=== PATIENT | female | born 1995 | race Caucasian/White ===

== ENCOUNTER 2017-03-03 16:54 | Emergency (ER) | payer SELFPAY ==
[2017-03-03 16:58] VITALS: BP 118/80; PULSE 98; RESP 14; TEMP 98.7; O2SAT 99
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
[2017-03-03] MEDS ORDERED: levETIRAcetam 1000 MG INJ 100 ML IV ONE (18:45)
[2017-03-03] MEDS ORDERED: SODIUM CHLORIDE 0.9% FLUSH 10 ML FLUSH IVF PRN (18:45)
[2017-03-03] MEDS ORDERED: SODIUM CHLOR 0.9% 1000 ML INJ 1,000 ML IV ONE (18:45)
[2017-03-03 18:59] VITALS: O2SAT 98
[2017-03-03 19:01] VITALS: BP 145/73; PULSE 79; RESP 18; O2SAT 97
[2017-03-03 19:24] LABS: AUTOMATED NEUTROPHIL # 8.8 TH/MM3 (1.8-7.7); BASOPHIL # 0.1 TH/MM3 (0-0.2); BASOPHIL % 0.6 % (0.0-2.0); EOSINOPHIL # 0.1 TH/MM3 (0-0.4); EOSINOPHIL % 0.4 % (0.0-4.0); HEMATOCRIT 42.8 % (35.0-46.0); HEMO FLAGS DIFF FINAL; LYMPH % 27.2 % (9.0-44.0); LYMPHOCYTE # 3.7 TH/MM3 (1.0-4.8); MEAN CELL VOLUME 86.7 FL (80.0-100.0); MEAN CORPUSCULAR HEMOGLOBIN 29.2 PG (27.0-34.0); MEAN CORPUSCULAR HGB CONC 33.7 % (32.0-36.0); MONO % 7.7 % (0.0-8.0); NEUT % 64.1 % (16.0-70.0); PLATELET COUNT 255 TH/MM3 (150-450); RED BLOOD COUNT 4.93 MIL/MM3 (4.00-5.30); RED CELL DISTRIBUTION WIDTH 13.8 % (11.6-17.2); WHITE BLOOD COUNT 13.7 TH/MM3 (4.0-11.0)
[2017-03-03 19:36] LABS: PROTHROMBIN TIME - PATIENT 10.8 SEC (9.8-11.6)
[2017-03-03 19:38] LABS: ANION GAP 9 MEQ/L (5-15); BICARBONATE 25.6 MEQ/L (21.0-32.0); BLOOD UREA NITROGEN 6 MG/DL (7-18); CHLORIDE 107 MEQ/L (98-107); GLOMERULAR FILTRATION RATE 91 ML/MIN (>89); POTASSIUM 3.4 MEQ/L (3.5-5.1); SODIUM (NA) 142 MEQ/L (136-145)
--- NOTE | 2017-03-03 19:39 | RADRPT ---
EXAM DATE/TIME: 03/03/2017 19:10 [facility] COMPARISON: No previous studies available for comparison. INDICATIONS : Left arm numbness and tingling. RADIATION DOSE: 30.84 CTDIvol (mGy) MEDICAL HISTORY : None SURGICAL HISTORY : None. ENCOUNTER: Initial ACUITY: 1 day PAIN SCALE: 0/10 LOCATION: cranial TECHNIQUE: Multiple contiguous axial images were obtained of the head. Using automated exposure control and adj ustment of the mA and/or kV according to patient size, radiation dose was kept as low as reasonably a chievable to obtain optimal diagnostic quality images. FINDINGS: CEREBRUM: The ventricles are normal. No evidence of midline shift, mass lesion, hemorrhage or acute infarction . No extra-axial fluid collections are seen. POSTERIOR FOSSA: The cerebellum and brainstem demonstrate no abnormality. The 4th ventricle is midline. The cerebell opontine angle is unremarkable. EXTRACRANIAL: The visualized sinuses are clear. SKULL: The calvaria is intact. No evidence of skull fracture. CONCLUSION: Negative noncontrast head CT. No acute finding is identified. Madan Holden MD on March 03, 2017 at 19:35 Board Certified Radiologist. This report was verified electronically.
[2017-03-03 19:41] LABS: CREATINE KINASE 182 U/L (26-192)
[2017-03-03] MEDS ORDERED: POTASSIUM CHLORIDE 20 MEQ CONTROLLED RELEASE TAB PO ONE (19:45)
--- NOTE | 2017-03-03 19:52 | RADRPT ---
EXAM DATE/TIME: 03/03/2017 19:26 [facility] COMPARISON: CT ABDOMEN & PELVIS W/O CONTRAST, August 22, 2013, 15:15. INDICATIONS : Left arm numbness. MEDICAL HISTORY : None. SURGICAL HISTORY : None. ENCOUNTER: Initial ACUITY: 1 day PAIN SCORE: 0/10 LOCATION: Left chest FINDINGS: Portable AP view of the chest demonstrates a normal-sized cardiac silhouette. No effusion, consolidat ion, or pneumothorax is visualized. The bones and soft tissues demonstrate no acute abnormality. CONCLUSION: No acute cardiopulmonary abnormality is identified. Madan Holden MD on March 03, 2017 at 19:49 Board Certified Radiologist. This report was verified electronically.
[2017-03-03] MEDS ORDERED: LEVE500 PO (20:22)
[2017-03-03 20:33] LABS: AMPHETAMINE, URINE NEG (NEG); BARBITURATES, URINE NEG (NEG); COCAINE, URINE NEG (NEG)
[2017-03-03 20:35] LABS: BACTERIA, URINE OCC /hpf; BLOOD, URINE NEG (NEG); COMMENT (UR) CATH-CULTURE IND; CULTURE IF INDICATED CATH CULTURE IND; GLUCOSE,URINE NEG (NEG); KETONE, URINE TRACE mg/dL (NEG); NITRITE,URINE NEG (NEG); PH, URINE 7.5 (5.0-8.5); SQUAMOUS EPITHELIAL CELL URINE 2 /hpf (0-5); URINE COLOR YELLOW (YELLW/STRAW)
[2017-03-03] MEDS ORDERED: MACR100C2 PO (20:41)
[2017-03-03] MEDS ORDERED: NITROFURANTOIN MONOHYD MACROCR 100 MG CAP PO ONE (20:45)
--- NOTE | 2017-03-04 13:48 | EKG ---
Date Performed: 03/03/2017 Time Performed: 18:54:54 PTAGE: 21 years EKG: Sinus rhythm MINIMAL ST DEPRESSION BORDERLINE ECG NO PREVIOUS TRACING DOCTOR: India Feliz Interpretating Date/Time 03/04/2017 13:43:30
== END 2017-03-03 20:52 | disposition home or self-care (01) ==
LOC: NEPD 16:54
DX: G40.909 Epilepsy, unspecified, not intractable, without status epilepticus (principal); G83.84 Todd's paralysis (postepileptic); N39.0 Urinary tract infection, site not specified; R53.1 Weakness; R56.9 Unspecified convulsions; F17.200 Nicotine dependence, unspecified, uncomplicated; Z79.899 Other long term (current) drug therapy
CPT/HCPCS: 70450; 71010; 80048; 80307; 81001; 82550; 84484; 85025; 85610; 87086; 93005; 96361; 96365; 99285; J1953; J7030

== ENCOUNTER 2017-04-29 15:07 | Emergency (ER) | payer BC ==
[~2017-04-29] VITALS: Ht 154.9 cm; Wt 45.5 kg
[~2017-04-29 15:07] MED LIST: LEVE500 PO; MACR100C2 PO
[2017-04-29 15:22] VITALS: BP 110/69; PULSE 84; RESP 16; TEMP 98.6; O2SAT 99
[2017-04-29] MEDS ORDERED: SODIUM CHLOR 0.9% 1000 ML INJ 1,000 ML IV SCH (16:22)
[2017-04-29] MEDS ORDERED: SODIUM CHLORIDE 0.9% FLUSH 10 ML FLUSH IV FLUSH PRN (16:30)
--- NOTE | 2017-04-29 16:32 | PD ---
HPI Chief Complaint: Abdominal Pain Time Seen by Provider: 16:10 Travel History International Travel<30 days: No Contact w/Intl Traveler<30days: No Traveled to known affect area: No History of Present Illness HPI 21-year-old female presents to the emergency room for evaluation of periumbilical abdominal pain for the past 4 days. States it started off intermittent and has become constant over the past 2 days. She has been taking Tums without relief in symptoms. She has had intermittent associated nausea but no vomiting or diarrhea. No history of abdominal surgery. Denies fever, chills, urinary frequency, urgency, or dysuria. She was previously prescribed Keppra but stopped taking it 2 weeks ago. Patient states she was never officially diagnosed with epilepsy and she did not like the way the medication made her feel so she stopped taking it. She is following with a neurologist. LMP was 1 week ago. PFSH Past Medical History Diminished Hearing: No Immunizations Current: Yes Seizures: Yes Tetanus Vaccination: > 5 Years Influenza Vaccination: No ?: Not LMP: 04/21/17 Menopausal: No : 0 Para: 0 Miscarriage: 0 : 0 Past Surgical History Surgical History: No Previous Surgery Social History Alcohol Use: Yes (Occ.) Tobacco Use: Yes (1/2-1 PPD) Substance Use: Yes (Marijuana occ. ) Allergies-Medications (Allergen,Severity, Reaction): Coded Allergies: No Known Allergies (Verified , 04/29/17) Reported Meds & Prescriptions Reported Meds & Active Scripts Active Omeprazole 20 Mg Tab 20 Mg PO DAILY Zofran (Ondansetron HCl) 4 Mg Tab 4 Mg PO Q8HR PRN Review of Systems Except as stated in HPI: all other systems reviewed are Neg Physical Exam Narrative GENERAL: Well-nourished, well-developed female in no acute distress. Afebrile. Ambulatory. SKIN: Focused skin assessment warm/dry. HEAD: Normocephalic. EYES: No scleral icterus. No injection or drainage. NECK: Supple, trachea midline. No JVD or lymphadenopathy. CARDIOVASCULAR: Regular rate and rhythm without murmurs, gallops, or rubs. RESPIRATORY: Breath sounds equal bilaterally. No accessory muscle use. GASTROINTESTINAL: Abdomen soft, nondistended. Tenderness to palpation and guarding at McBurney's point. Negative psoas sign. Positive obturator sign. No rebound tenderness. Data Data Last Documented VS Vital Signs Date Time Temp Pulse Resp B/P Pulse Ox O2 Delivery O2 Flow Rate FiO2 04/29/17 17:35 85 16 119/70 99 Room Air 04/29/17 15:22 98.6 Orders Complete Blood Count With Diff (04/29/17 16:22) Comprehensive Metabolic Panel (04/29/17 16:22) Lipase (04/29/17 16:22) Prothrombin Time / Inr (Pt) (04/29/17 16:22) Act Partial Throm Time (Ptt) (04/29/17 16:22) Urinalysis - C+S If Indicated (04/29/17 16:22) Ct Abd/Pel W Iv Contrast(Rout) (04/29/17 16:22) Iv Access Insert/Monitor (04/29/17 16:22) Sodium Chlor 0.9% 1000 Ml Inj (Ns 1000 M (04/29/17 16:22) Sodium Chloride 0.9% Flush (Ns Flush) (04/29/17 16:30) Ed Urine Pregnancytest Poc (04/29/17 16:22) Oral Contrast - Adult (04/29/17 16:31) Diatrizoate Liq ( Gastroview Liq) (04/29/17 16:41) Iohexol 350 Inj (Omnipaque 350 Inj) (04/29/17 17:43) Labs Laboratory Tests Test 04/29/17 16:39 White Blood Count 10.3 TH/MM3 Red Blood Count 4.76 MIL/MM3 Hemoglobin 14.3 GM/DL Hematocrit 41.8 % Mean Corpuscular Volume 87.8 FL Mean Corpuscular Hemoglobin 29.9 PG Mean Corpuscular Hemoglobin 34.1 % Concent Red Cell Distribution Width 12.4 % Platelet Count 244 TH/MM3 Mean Platelet Volume 7.9 FL Neutrophils (%) (Auto) 60.3 % Lymphocytes (%) (Auto) 27.8 % Monocytes (%) (Auto) 9.5 % Eosinophils (%) (Auto) 1.6 % Basophils (%) (Auto) 0.8 % Neutrophils # (Auto) 6.1 TH/MM3 Lymphocytes # (Auto) 2.9 TH/MM3 Monocytes # (Auto) 1.0 TH/MM3 Eosinophils # (Auto) 0.2 TH/MM3 Basophils # (Auto) 0.1 TH/MM3 CBC Comment DIFF FINAL Differential Comment Prothrombin Time 10.7 SEC Prothromb Time International 1.0 RATIO Ratio Activated Partial 27.1 SEC Thromboplast Time Urine Color YELLOW Urine Turbidity CLEAR Urine pH 7.5 Urine Specific [place] 1.015 Urine Protein NEG mg/dL Urine Glucose (UA) NEG mg/dL Urine Ketones TRACE mg/dL Urine Occult Blood NEG Urine Nitrite NEG Urine Bilirubin NEG Urine Leukocyte Esterase NEG Urine RBC 0-3 /hpf Urine WBC 0-2 /hpf Urine Squamous Epithelial 6-8 /hpf Cells Urine Amorphous Sediment LARGE Microscopic Urinalysis Comment CULT NOT INDICATED Sodium Level 141 MEQ/L Potassium Level 3.4 MEQ/L Chloride Level 105 MEQ/L Carbon Dioxide Level 31.3 MEQ/L Anion Gap 5 MEQ/L Blood Urea Nitrogen 9 MG/DL Creatinine 0.74 MG/DL Estimat Glomerular Filtration 99 ML/MIN Rate Random Glucose 64 MG/DL Calcium Level 9.3 MG/DL Total Bilirubin 0.3 MG/DL Aspartate Amino Transf 14 U/L (AST/SGOT) Alanine Aminotransferase 18 U/L (ALT/SGPT) Alkaline Phosphatase 51 U/L Total Protein 7.8 GM/DL Albumin 4.0 GM/DL Lipase 208 U/L [facility] Medical Decision Making Medical Screen Exam Complete: Yes Emergency Medical Condition: Yes Medical Record Reviewed: Yes Differential Diagnosis Appendicitis, gas pain, urinary tract infection Narrative Course 21-year-old female presents to the emergency room for evaluation of periumbilical abdominal pain for the past 4 days with associated nausea. No history of vomiting or diarrhea. Patient denies fever, chills, urinary symptoms. No history of abdominal surgery. Vital signs stable. Physical exam reveals tenderness to palpation with guarding over McBurney's point and positive obturator sign. No rebound tenderness. IV established and basic labs obtained. CBC, CMP are unremarkable. Urine test is negative. No evidence of urinary tract infection. CT shows duodenitis. Patient will be discharged with omeprazole and Zofran and told to follow up with a reshipping clerk for endoscopy. Told to return for worsening symptoms. She understands and agrees to plan. Diagnosis Primary Impression: Duodenitis Referrals: [facility] Primary Care Physician Patient Instructions: Duodenitis (ED), General Instructions Additional Instructions: Rest and drink plenty of fluids. Take Zofran as directed, as needed for nausea. Take omeprazole as directed. Follow-up with a reshipping clerk. Return to the emergency room for worsening symptoms. Med/Other Pt SpecificInfo: Prescription(s) given Scripts Omeprazole 20 Mg Tab20 Mg PO DAILY #30 TAB Ref 0 Prov:Krishna Warren MD 04/29/17 Ondansetron (Zofran)4 Mg Tab4 Mg PO Q8HR PRN (NAUSEA OR VOMITING) #12 TAB Ref 0 Prov:Krishna Warren MD 04/29/17 Disposition: 01 DISCHARGE HOME Condition: Stable Keila Joseph Apr 29, 2017 16:32
[2017-04-29] MEDS ORDERED: DIATRIZOATE MEGLUM/DIATRIZOATE SOD 9 ML CUP ONE (16:41)
[2017-04-29 16:44] LABS: BLOOD, URINE NEG (NEG); GLUCOSE,URINE NEG (NEG); KETONE, URINE TRACE mg/dL (NEG); NITRITE,URINE NEG (NEG); PH, URINE 7.5 (5.0-8.5)
[2017-04-29 16:50] LABS: CHLORIDE 105 MEQ/L (98-107); POTASSIUM 3.4 MEQ/L (3.5-5.1); SODIUM (NA) 141 MEQ/L (136-145)
[2017-04-29 16:52] LABS: AUTOMATED NEUTROPHIL # 6.1 TH/MM3 (1.8-7.7); BASOPHIL # 0.1 TH/MM3 (0-0.2); BASOPHIL % 0.8 % (0.0-2.0); EOSINOPHIL # 0.2 TH/MM3 (0-0.4); EOSINOPHIL % 1.6 % (0.0-4.0); HEMATOCRIT 41.8 % (35.0-46.0); HEMO FLAGS DIFF FINAL; LYMPH % 27.8 % (9.0-44.0); LYMPHOCYTE # 2.9 TH/MM3 (1.0-4.8); MEAN CELL VOLUME 87.8 FL (80.0-100.0); MEAN CORPUSCULAR HEMOGLOBIN 29.9 PG (27.0-34.0); MEAN CORPUSCULAR HGB CONC 34.1 % (32.0-36.0); MONO % 9.5 % (0.0-8.0); NEUT % 60.3 % (16.0-70.0); PLATELET COUNT 244 TH/MM3 (150-450); RED BLOOD COUNT 4.76 MIL/MM3 (4.00-5.30); RED CELL DISTRIBUTION WIDTH 12.4 % (11.6-17.2); WHITE BLOOD COUNT 10.3 TH/MM3 (4.0-11.0)
[2017-04-29 16:53] LABS: URINE COLOR YELLOW (YELLW/STRAW)
[2017-04-29 16:54] LABS: ANION GAP 5 MEQ/L (5-15); BICARBONATE 31.3 MEQ/L (21.0-32.0); BLOOD UREA NITROGEN 9 MG/DL (7-18); COMMENT (UR) CULT NOT INDICATED; CULTURE IF INDICATED CULT NOT INDICATED; RBC, URINE 0-3 /hpf (0-3); WBC, URINE 0-2 /hpf (0-5)
[2017-04-29 16:56] LABS: APTT (PATIENT) 27.1 SEC (24.3-30.1); PROTHROMBIN TIME - PATIENT 10.7 SEC (9.8-11.6)
[2017-04-29 16:57] LABS: ALT (GPT) 18 U/L (10-53); AST (GOT) 14 U/L (15-37); GLOMERULAR FILTRATION RATE 99 ML/MIN (>89)
[2017-04-29 16:58] LABS: TOTAL BILIRUBIN ADULT 0.3 MG/DL (0.2-1.0)
[2017-04-29 17:00] LABS: ALKALINE PHOSPHATASE 51 U/L (45-117)
[2017-04-29 17:35] VITALS: BP 119/70; PULSE 85; RESP 16; O2SAT 99
[2017-04-29] MEDS ORDERED: IOHEXOL 350 MG/ML 10 ML VIAL (for RAD DIAG) IV ONE (17:43)
--- NOTE | 2017-04-29 18:34 | RADRPT ---
EXAM DATE/TIME: 04/29/2017 17:50 [facility] COMPARISON: No previous studies available for comparison. INDICATIONS : Mid abdominal pain with nausea for 4 days. IV CONTRAST: 96 cc Omnipaque 350 (iohexol) IV ORAL CONTRAST: Prescribed oral contrast ingested. RADIATION DOSE: 2.77 CTDIvol (mGy) MEDICAL HISTORY : None SURGICAL HISTORY : None. ENCOUNTER: Initial ACUITY: 4 - 6 days PAIN SCALE: 4/10 LOCATION: middle abdomen TECHNIQUE: Volumetric scanning of the abdomen and pelvis was performed. Using automated exposure control and ad justment of the mA and/or kV according to patient size, radiation dose was kept as low as reasonably achievable to obtain optimal diagnostic quality images. DICOM format image data is available electro nically for review and comparison. FINDINGS: Lung bases are clear. No acute findings in the liver, spleen, adrenals, kidneys and pancreas. There i s some thickening of the duodenal wall which could indicate duodenitis. There is a 2.2 cm in left adnexal cyst. Trace free fluid in the pelvis. No bowel obstruction. No free air. Stomach mildly distended. No acute bony adenoids. No adenopathy. CONCLUSION: 1. Questionable mild thickening of the duodenal wall most characteristic of a duodenitis. Stomach mil dly distended. 2. Trace free fluid in the pelvis with 2.2 cm left adnexal cyst. Rashid Cifuentes MD on April 29, 2017 at 18:27 Board Certified Radiologist. This report was verified electronically.
[2017-04-29] MEDS ORDERED: OMEP20TA PO (18:49)
[2017-04-29] MEDS ORDERED: ZOFR4TAB PO (18:49)
[2017-04-29 19:01] VITALS: BP 125/60; TEMP 98.1
== END 2017-04-29 19:04 | disposition home or self-care (01) ==
LOC: PHED 15:07
DX: K29.80 Duodenitis without bleeding (principal); F17.200 Nicotine dependence, unspecified, uncomplicated
CPT/HCPCS: 74177; 80053; 81001; 83690; 84703; 85025; 85610; 85730; 96360; 99285; J7030; Q9963; Q9967